=== PATIENT | female | born 1985 | race African-American/Black ===

== ENCOUNTER 2019-05-28 08:36 | Emergency (ER) | payer MEDICAID ==
[~2019-05-28] VITALS: Ht 165.1 cm; Wt 55.0 kg
[2019-05-28 13:52] VITALS: BP 106/56
== END 2019-05-28 13:52 | disposition home or self-care (01) ==
LOC: ER 08:36
DX: O99.611 Diseases of the digestive system complicating pregnancy, first trimester (principal); Z98.890 Other specified postprocedural states; Z3A.01 Less than 8 weeks gestation of pregnancy
CPT/HCPCS: 76700; 76801; 81025; 99284

== ENCOUNTER 2019-05-31 14:47 | Emergency (ER) | payer MEDICAID ==
[~2019-05-31] VITALS: Ht 165.1 cm; Wt 55.0 kg
[2019-05-31 17:24] VITALS: BP 111/50
== END 2019-05-31 21:13 | disposition left against medical advice (07) ==
LOC: ER 14:47
DX: Z53.21 Procedure and treatment not carried out due to patient leaving prior to being seen by health care provider (principal)

== ENCOUNTER 2019-06-02 15:43 | Emergency (ER) | payer MEDICAID ==
[~2019-06-02] VITALS: Ht 165.1 cm; Wt 59.0 kg
[2019-06-02] MEDS ORDERED: TYLENOL 3 (16:05)
[2019-06-02] MEDS ORDERED: ONDA4TAB11 PO (16:06)
[2019-06-02] MEDS ORDERED: SODIUM CHLORIDE 0.9% 1,000 ML IV ONE (16:33)
[2019-06-02] MEDS ORDERED: ONDANSETRON HCL 4MG/2ML INJ IV STA (16:33)
[2019-06-02 18:13] LABS: BASOPHILS % 0.5 % (0.0-2.0); EOSINOPHILS % 2.3 % (0.0-5.0); HEMATOCRIT. 34.8 % (36.0-48.0); HEMOGLOBIN. 11.5 g/dL (12.0-16.0); LYMPHOCYTES % 27.2 % (20.0-50.0); MEAN CORPUSCULAR HEMOGLOBIN 28.2 pg (28.0-32.0); MEAN CORPUSCULAR VOLUME 84.8 fL (81.0-99.0); MEAN PLATELET VOLUME 9.3 fl (7.4-10.4); MONOCYTES % 5.8 % (2.0-8.0); NEUTROPHILS % 64.2 % (40.0-76.0); PLATELET 225 x1000/uL (130-400)
[2019-06-02 18:20] LABS: CHLORIDE 105 mEq/L (98-107)
[2019-06-02 18:23] LABS: CLARITY URINE CLEAR (CLEAR); COLOR URINE YELLOW (YELLOW); KETONES URINE NEGATIVE (NEGATIVE); LEUKOCYTE ESTERASE URINE NEGATIVE (NEGATIVE); NITRITE URINE NEGATIVE (NEGATIVE); OCCULT BLOOD URINE NEGATIVE (NEGATIVE); PROTEIN URINE NEGATIVE (NEGATIVE); SPECIFIC GRAVITY URINE 1.009 (1.005-1.030); UROBILINOGEN URINE 0.2 E.U./dL (0.2-1.0)
[2019-06-02] MEDS ORDERED: MAGNESIUM/ALUMINUM HYDROXIDE/SIMETHICONE 30ML UDC PO STA (18:26)
[2019-06-02] MEDS ORDERED: DICYCLOMINE 10 MG/5 ML ORAL SYR PO STA (18:26)
[2019-06-02] MEDS ORDERED: VISCOUS LIDOCAINE 2% 15 ML UDC PO STA (18:26)
[2019-06-02] MEDS ORDERED: POTASSIUM CHLORIDE 20MEQ TABLET SR PO ONE (18:30)
[2019-06-02 20:00] VITALS: BP 110/68
== END 2019-06-02 20:40 | disposition home or self-care (01) ==
LOC: ER 15:43
DX: O26.892 Other specified pregnancy related conditions, second trimester (principal); O21.0 Mild hyperemesis gravidarum; R10.9 Unspecified abdominal pain; Z3A.01 Less than 8 weeks gestation of pregnancy
CPT/HCPCS: 36415; 76705; 80053; 81003; 81025; 83690; 85025; 96361; 96374; 99284; J2405; J7030

== ENCOUNTER 2019-07-30 01:01 | Emergency (ER) | payer MEDICAID ==
[~2019-07-30] VITALS: Ht 165.1 cm; Wt 58.0 kg
[~2019-07-30 01:01] MED LIST: ONDA4TAB11 PO; TYLENOL 3
[2019-07-30 01:52] LABS: BASOPHILS % 0.5 % (0.0-2.0); EOSINOPHILS % 1.6 % (0.0-5.0); HEMATOCRIT. 33.1 % (36.0-48.0); HEMOGLOBIN. 11.4 g/dL (12.0-16.0); LYMPHOCYTES % 18.5 % (20.0-50.0); MEAN CORPUSCULAR HEMOGLOBIN 29.2 pg (28.0-32.0); MEAN CORPUSCULAR VOLUME 84.8 fL (81.0-99.0); MONOCYTES % 5.4 % (2.0-8.0); PLATELET 234 x1000/uL (130-400); RED CELL DISTRIBUTION WIDTH 12.9 % (11.6-14.6)
[2019-07-30 01:57] LABS: CHLORIDE 107 mEq/L (98-107)
[2019-07-30 01:58] LABS: INR 0.9; PROTHROMBIN TIME 10.2 sec (9.6-11.0)
[2019-07-30 02:12] LABS: CLARITY URINE CLEAR (CLEAR); COLOR URINE YELLOW (YELLOW); KETONES URINE NEGATIVE (NEGATIVE); LEUKOCYTE ESTERASE URINE NEGATIVE (NEGATIVE); NITRITE URINE NEGATIVE (NEGATIVE); OCCULT BLOOD URINE NEGATIVE (NEGATIVE); PROTEIN URINE NEGATIVE (NEGATIVE); UROBILINOGEN URINE 0.2 E.U./dL (0.2-1.0)
[2019-07-30] MEDS ORDERED: ACETAMINOPHEN 500MG TABLET PO SCH (05:15)
[2019-07-30 05:19] VITALS: BP 104/66
== END 2019-07-30 05:21 | disposition home or self-care (01) ==
LOC: ER 01:01
DX: O26.892 Other specified pregnancy related conditions, second trimester (principal); R10.31 Right lower quadrant pain; Z3A.16 16 weeks gestation of pregnancy; Z98.890 Other specified postprocedural states
CPT/HCPCS: 36415; 76805; 76857; 80053; 81003; 85025; 99285

== ENCOUNTER 2020-01-05 07:59 | Emergency (ER) | payer MEDICAID ==
[~2020-01-05] VITALS: Ht 165.1 cm; Wt 80.0 kg
[2020-01-05 08:16] VITALS: BP 111/76
== END 2020-01-05 09:01 | disposition home or self-care (01) ==
LOC: ER 07:59
DX: O26.893 Other specified pregnancy related conditions, third trimester (principal); Z3A.39 39 weeks gestation of pregnancy; Z20.828 Contact with and (suspected) exposure to other viral communicable diseases
CPT/HCPCS: 87635; 99283; C9803

== ENCOUNTER 2020-01-08 06:13 | Inpatient (IN) | payer MEDICAID ==
[~2020-01-08] VITALS: Ht 165.1 cm; Wt 74.8 kg
[2020-01-08] MEDS: KETOROLAC 30MG/ML VIAL IV SCH ×3 (05:00→23:09)
[2020-01-08] MEDS ORDERED: DEXT 5%/LR + PITOCIN 20UNITS/L 1,000 ML IV SCH ×2 (06:28→10:33)
[2020-01-08] MEDS ORDERED: LACTATED RINGERS 1,000 ML IV SCH ×2 (06:28→07:30)
[2020-01-08] MEDS ORDERED: NALOXONE HCL 0.4 MG/ML 1ML VIAL IM PRN (06:30)
[2020-01-08] MEDS ORDERED: FERR325T6 PO (06:30)
[2020-01-08] MEDS ORDERED: CARBOPROST TROMETHAMINE 250 MCG/ML AMPUL IM PRN (06:30)
[2020-01-08] MEDS ORDERED: METHYLERGONOVINE MALEATE 0.2 MG/ML IM PRN (06:30)
[2020-01-08] MEDS ORDERED: PNV1TABL76 PO (06:30)
[2020-01-08 07:17] LABS: BASOPHILS % 0.2 % (0.0-2.0); EOSINOPHILS % 0.5 % (0.0-5.0); HEMATOCRIT. 36.1 % (36.0-48.0); LYMPHOCYTES % 19.1 % (20.0-50.0); MEAN CORPUSCULAR HEMOGLOBIN 29.5 pg (28.0-32.0); MEAN CORPUSCULAR VOLUME 88.4 fL (81.0-99.0); MEAN PLATELET VOLUME 8.5 fl (7.4-10.4); MONOCYTES % 6.4 % (2.0-8.0); NEUTROPHILS % 73.8 % (40.0-76.0); PLATELET 215 x1000/uL (130-400); RED BLOOD CELL COUNT 4.08 mill/uL (4.2-5.4); RED CELL DISTRIBUTION WIDTH 13.9 % (11.6-14.6)
[2020-01-08 07:27] LABS: PARTIAL THROMBOPLASTIN TIME 28.2 sec (23.4-31.0); PROTHROMBIN TIME 10.1 sec (9.6-11.0)
[2020-01-08] MEDS ORDERED: DIPHENHYDRAMINE 50MG/ML VIAL IV PRN ×2 (07:30)
[2020-01-08] MEDS ORDERED: ONDANSETRON HCL 4MG/2ML INJ IV PRN (07:30)
[2020-01-08] MEDS ORDERED: NALOXONE HCL 0.4 MG/ML 1ML VIAL IV PRN (07:30)
[2020-01-08] MEDS ORDERED: METOCLOPRAMIDE HCL 10MG/2ML VIAL IV PRN (07:30)
[2020-01-08] MEDS ORDERED: FENTANYL CITRATE/PF 50MCG/ML 2ML VIAL IV PRN (07:30)
[2020-01-08] MEDS ORDERED: MORPHINE SULFATE 10 MG/ML CPJ IV PRN (07:30)
[2020-01-08] MEDS ORDERED: KETOROLAC 30MG/ML VIAL IM SCH (07:30)
[2020-01-08 07:42] LABS: CLARITY URINE CLEAR (CLEAR); COLOR URINE YELLOW (YELLOW); KETONES URINE NEGATIVE (NEGATIVE); LEUKOCYTE ESTERASE URINE TRACE (NEGATIVE); NITRITE URINE NEGATIVE (NEGATIVE); OCCULT BLOOD URINE NEGATIVE (NEGATIVE); PH URINE 7.5 (4.5-8.0); PROTEIN URINE NEGATIVE (NEGATIVE); SPECIFIC GRAVITY URINE 1.013 (1.005-1.030)
[2020-01-08 07:57] LABS: HEPATITIS B SURFACE ANTIGEN NEGATIVE
[2020-01-08 08:21] LABS: *COCAINE SCREEN URINE NEGATIVE (NEGATIVE)
[2020-01-08 08:22] LABS: *AMPHETAMINES SCREEN URINE NEGATIVE (NEGATIVE); *BARBITURATES SCREEN URINE NEGATIVE (NEGATIVE); CANNABINOID URINE SCREEN NEGATIVE (NEGATIVE); METHADONE URINE SCREEN NEGATIVE (NEGATIVE); OPIATES URINE SCREEN NEGATIVE (NEGATIVE); PHENCYCLIDINE URINE SCREEN NEGATIVE (NEGATIVE)
[2020-01-08 08:24] LABS: *BENZODIAZEPINES SCREEN URINE NEGATIVE (NEGATIVE)
[2020-01-08] MEDS ORDERED: PROPOFOL 200MG/20ML VIAL IV ONE (10:00)
[2020-01-08] MEDS ORDERED: MIDAZOLAM HCL 2 MG/2 ML VIAL ONE (10:02)
[2020-01-08] MEDS ORDERED: KETOROLAC 30MG/ML VIAL IV PRN (10:45)
[2020-01-08] MEDS ORDERED: IBUPROFEN 400MG TABLET PO PRN (10:45)
[2020-01-08] MEDS ORDERED: BISACODYL 10MG SUPP PR PRN (10:45)
[2020-01-08] MEDS ORDERED: RHO(D) IMMUNE GLOBULIN 300 MCG/SYR IM PRN (10:45)
[2020-01-08 12:37] VITALS: BP 113/62
[2020-01-08 15:00] VITALS: BP 103/58
[2020-01-08 17:00] VITALS: BP 113/57
[2020-01-08 19:30] VITALS: BP 112/61
[2020-01-09 04:00] VITALS: BP 101/55
[2020-01-09 07:16] LABS: BASOPHILS % 0.2 % (0.0-2.0); EOSINOPHILS % 0.4 % (0.0-5.0); HEMATOCRIT. 25.8 % (36.0-48.0); HEMOGLOBIN. 8.8 g/dL (12.0-16.0); LYMPHOCYTES % 14.9 % (20.0-50.0); MEAN CORPUSCULAR HEMOGLOBIN 30.2 pg (28.0-32.0); MEAN CORPUSCULAR VOLUME 88.9 fL (81.0-99.0); MEAN PLATELET VOLUME 8.4 fl (7.4-10.4); MONOCYTES % 8.7 % (2.0-8.0); NEUTROPHILS % 75.8 % (40.0-76.0); PLATELET 172 x1000/uL (130-400); RED BLOOD CELL COUNT 2.91 mill/uL (4.2-5.4); RED CELL DISTRIBUTION WIDTH 13.9 % (11.6-14.6)
[2020-01-09 07:35] VITALS: BP 96/55
[2020-01-09] MEDS: IBUPROFEN 800MG TABLET PO PRN ×2 (09:14→17:27)
[2020-01-09 14:45] VITALS: BP 106/51
[2020-01-09] MEDS ORDERED: DIPHENHYDRAMINE 25MG CAPSULE PO PRN (15:30)
[2020-01-09 20:00] VITALS: BP 111/68
[2020-01-09] MEDS ORDERED: DOCUSATE SODIUM 100MG CAPSULE PO SCH (22:30)
[2020-01-09] MEDS ORDERED: SIMETHICONE 80MG TABLET CHEW PO SCH (22:30)
[2020-01-10] VITALS: BP 101/60
[2020-01-10 04:00] VITALS: BP 101/76
[2020-01-10] MEDS: IBUPROFEN 800MG TABLET PO PRN ×2 (04:19→09:20)
[2020-01-10] MEDS ORDERED: SIMETHICONE 80MG TABLET CHEW PO SCH (07:30)
[2020-01-10] MEDS ORDERED: DOCUSATE SODIUM 100MG CAPSULE PO SCH (09:00)
[2020-01-10 09:22] VITALS: BP 106/68
== END 2020-01-10 11:50 | disposition home or self-care (01) | DRG 540 ==
LOC: 8 EST LDRP 06:13 → 8EST 12:35
PROVIDERS: ADMIT Obstetrics & Gynecology; ATTEND Obstetrics & Gynecology
PROC: 10D00Z1 Extraction of Products of Conception, Low, Open Approach (ICD-10-PCS; principal; 2020-01-08)
DX: O34.211 Maternal care for low transverse scar from previous cesarean delivery (principal); O34.03 Maternal care for unspecified congenital malformation of uterus, third trimester; O99.02 Anemia complicating childbirth; D64.9 Anemia, unspecified; Z37.0 Single live birth; Z3A.39 39 weeks gestation of pregnancy; Q51.3 Bicornate uterus; Z82.49 Family history of ischemic heart disease and other diseases of the circulatory system; Z79.899 Other long term (current) drug therapy
CPT/HCPCS: 36415; 80305; 81003; 85025; 86592; 86703; 86762; 86850; 86900; 87340; 88307; J1200; J1885; J2250; J2590; J2704; J7120; Q0163

== ENCOUNTER 2020-03-20 03:37 | Emergency (ER) | payer MEDICAID ==
[~2020-03-20] VITALS: Ht 165.1 cm; Wt 69.1 kg
[~2020-03-20 03:37] MED LIST changes: +FERR325T6 PO; -ONDA4TAB11 PO; -TYLENOL 3
[2020-03-20] MEDS ORDERED: KETOROLAC 30MG/ML VIAL IV STA (06:46)
[2020-03-20] MEDS ORDERED: METOCLOPRAMIDE HCL 10MG/2ML VIAL IV ONE (07:00)
[2020-03-20 07:04] LABS: BASOPHILS % 0.5 % (0.0-2.0); EOSINOPHILS % 2.8 % (0.0-5.0); HEMATOCRIT. 33.8 % (36.0-48.0); HEMOGLOBIN. 11.3 g/dL (12.0-16.0); LYMPHOCYTES % 28.8 % (20.0-50.0); MEAN CORPUSCULAR HEMOGLOBIN 28.9 pg (28.0-32.0); MEAN CORPUSCULAR VOLUME 86.5 fL (81.0-99.0); MEAN PLATELET VOLUME 8.3 fl (7.4-10.4); MONOCYTES % 6.1 % (2.0-8.0); NEUTROPHILS % 61.8 % (40.0-76.0); PLATELET 275 x1000/uL (130-400); RED BLOOD CELL COUNT 3.91 mill/uL (4.2-5.4); RED CELL DISTRIBUTION WIDTH 13.2 % (11.6-14.6)
[2020-03-20 07:06] LABS: CLARITY URINE CLOUDY (CLEAR); COLOR URINE RED (YELLOW); KETONES URINE TRACE (NEGATIVE); LEUKOCYTE ESTERASE URINE 1+ (NEGATIVE); NITRITE URINE NEGATIVE (NEGATIVE); OCCULT BLOOD URINE 3+ (NEGATIVE); PROTEIN URINE 1+ (NEGATIVE); SPECIFIC GRAVITY URINE 1.013 (1.005-1.030); UROBILINOGEN URINE 0.2 E.U./dL (0.2-1.0)
[2020-03-20 07:07] LABS: CHLORIDE 104 mEq/L (98-107)
[2020-03-20 08:30] VITALS: BP 128/74
[2020-03-20 09:11] LABS: PROTHROMBIN TIME 10.7 sec (9.6-11.0)
== END 2020-03-20 09:18 | disposition home or self-care (01) ==
LOC: ER 03:37
DX: R10.9 Unspecified abdominal pain (principal); R51.9 Headache, unspecified; D64.9 Anemia, unspecified
CPT/HCPCS: 36415; 74176; 80053; 81003; 83690; 85025; 85610; 96374; 96375; 99285; J1885; J2765

== ENCOUNTER 2020-06-29 23:29 | Emergency (ER) | payer MEDICAID ==
[~2020-06-29] VITALS: Ht 165.1 cm; Wt 74.2 kg
[2020-06-30 00:18] LABS: CLARITY URINE CLEAR (CLEAR); COLOR URINE YELLOW (YELLOW); KETONES URINE NEGATIVE (NEGATIVE); LEUKOCYTE ESTERASE URINE TRACE (NEGATIVE); NITRITE URINE NEGATIVE (NEGATIVE); OCCULT BLOOD URINE NEGATIVE (NEGATIVE); PROTEIN URINE NEGATIVE (NEGATIVE); SPECIFIC GRAVITY URINE 1.005 (1.005-1.030); UROBILINOGEN URINE 0.2 E.U./dL (0.2-1.0)
[2020-06-30] MEDS ORDERED: SODIUM CHLORIDE 0.9% 1,000 ML IV ONE (00:30)
[2020-06-30] MEDS ORDERED: METOCLOPRAMIDE HCL 5MG TABLET PO ONE (00:30)
[2020-06-30] MEDS ORDERED: ACETAMINOPHEN 325MG TABLET PO STA (00:30)
[2020-06-30 00:48] LABS: BASOPHILS % 0.4 % (0.0-2.0); EOSINOPHILS % 2.2 % (0.0-5.0); HEMATOCRIT. 33.7 % (36.0-48.0); HEMOGLOBIN. 11.1 g/dL (12.0-16.0); LYMPHOCYTES % 22.6 % (20.0-50.0); MEAN CORPUSCULAR HEMOGLOBIN 27.1 pg (28.0-32.0); MEAN CORPUSCULAR VOLUME 82.5 fL (81.0-99.0); MEAN PLATELET VOLUME 7.9 fl (7.4-10.4); MONOCYTES % 6.7 % (2.0-8.0); NEUTROPHILS % 68.1 % (40.0-76.0); PLATELET 251 x1000/uL (130-400); RED BLOOD CELL COUNT 4.09 mill/uL (4.2-5.4); RED CELL DISTRIBUTION WIDTH 12.4 % (11.6-14.6)
[2020-06-30 00:55] LABS: CHLORIDE 105 mEq/L (98-107)
[2020-06-30 01:09] LABS: HCG SCREEN NEGATIVE
[2020-06-30 01:34] LABS: PROTHROMBIN TIME 10.7 sec (9.6-11.0)
[2020-06-30 02:00] VITALS: BP 124/76
[2020-06-30 02:02] LABS: *COCAINE SCREEN URINE NEGATIVE (NEGATIVE)
[2020-06-30 02:03] LABS: *AMPHETAMINES SCREEN URINE NEGATIVE (NEGATIVE); *BARBITURATES SCREEN URINE NEGATIVE (NEGATIVE); *BENZODIAZEPINES SCREEN URINE NEGATIVE (NEGATIVE); CANNABINOID URINE SCREEN NEGATIVE (NEGATIVE); METHADONE URINE SCREEN NEGATIVE (NEGATIVE); OPIATES URINE SCREEN NEGATIVE (NEGATIVE); PHENCYCLIDINE URINE SCREEN NEGATIVE (NEGATIVE)
[2020-06-30] MEDS ORDERED: CEPH250C2 MT (02:21)
[2020-06-30] MEDS ORDERED: CEPHALEXIN 250MG CAPSULE PO SCH (02:30)
== END 2020-06-30 04:23 | disposition home or self-care (01) ==
LOC: ER 23:29
DX: N39.0 Urinary tract infection, site not specified (principal); R51.9 Headache, unspecified; D64.9 Anemia, unspecified; R03.0 Elevated blood-pressure reading, without diagnosis of hypertension; Z98.890 Other specified postprocedural states
CPT/HCPCS: 36415; 80053; 80305; 81003; 81025; 82962; 83690; 84703; 85025; 85610; 93005; 96360; 99284; J7030; J8597

== ENCOUNTER 2020-10-14 06:47 | Emergency (ER) | payer MEDICAID ==
[~2020-10-14] VITALS: Ht 165.1 cm; Wt 70.0 kg
[~2020-10-14 06:47] MED LIST changes: +CEPH250C2 MT
[2020-10-14] MEDS ORDERED: ONDANSETRON HCL 4MG/2ML INJ IV STA (07:26)
[2020-10-14] MEDS ORDERED: MORPHINE SULFATE 4 MG/ML CPJ (NOT FOR IM USE) IV STA (07:26)
[2020-10-14] MEDS ORDERED: SODIUM CHLORIDE 0.9% 1,000 ML IV ONE (07:30)
[2020-10-14 09:08] LABS: CLARITY URINE CLEAR (CLEAR); COLOR URINE YELLOW (YELLOW); KETONES URINE NEGATIVE (NEGATIVE); LEUKOCYTE ESTERASE URINE NEGATIVE (NEGATIVE); NITRITE URINE NEGATIVE (NEGATIVE); OCCULT BLOOD URINE NEGATIVE (NEGATIVE); PH URINE 5.5 (4.5-8.0); PROTEIN URINE NEGATIVE (NEGATIVE); SPECIFIC GRAVITY URINE 1.007 (1.005-1.030); UROBILINOGEN URINE 0.2 E.U./dL (0.2-1.0)
[2020-10-14 09:16] LABS: BASOPHILS % 0.3 % (0.0-2.0); EOSINOPHILS % 1.4 % (0.0-5.0); HEMATOCRIT. 33.5 % (36.0-48.0); HEMOGLOBIN. 11.2 g/dL (12.0-16.0); LYMPHOCYTES % 22.4 % (20.0-50.0); MEAN CORPUSCULAR HEMOGLOBIN 27.3 pg (28.0-32.0); MEAN CORPUSCULAR VOLUME 81.7 fL (81.0-99.0); MEAN PLATELET VOLUME 8.3 fl (7.4-10.4); MONOCYTES % 4.1 % (2.0-8.0); NEUTROPHILS % 71.8 % (40.0-76.0); PLATELET 281 x1000/uL (130-400); RED BLOOD CELL COUNT 4.11 mill/uL (4.2-5.4); RED CELL DISTRIBUTION WIDTH 14.2 % (11.6-14.6)
[2020-10-14 09:27] LABS: CHLORIDE 110 mEq/L (98-107)
[2020-10-14] MEDS ORDERED: TRAM50TA3 MT (10:36)
[2020-10-14] MEDS ORDERED: OMEP20CA14 MT (10:40)
[2020-10-14 11:46] VITALS: BP 102/60
[2020-10-18] MEDS ORDERED: HYDROCODONE/ACETAMINOPHEN 10/325MG TABLET PO SCH (04:00)
== END 2020-10-14 11:56 | disposition home or self-care (01) ==
LOC: ER 06:47
DX: K80.50 Calculus of bile duct without cholangitis or cholecystitis without obstruction (principal)
CPT/HCPCS: 36415; 76705; 80053; 81003; 81025; 83690; 84484; 85025; 93005; 96361; 96374; 96375; 99285; C1893; J2270; J2405; J7030; Z7610

== ENCOUNTER 2020-10-18 03:13 | Emergency (ER) | payer MEDICAID ==
[~2020-10-18] VITALS: Ht 152.4 cm; Wt 61.0 kg
[~2020-10-18 03:13] MED LIST changes: +OMEP20CA14 MT; +TRAM50TA3 MT
[2020-10-18] MEDS ORDERED: HYDROCODONE/ACETAMINOPHEN 10/325MG TABLET PO ONE (04:15)
[2020-10-18 04:25] VITALS: BP 136/72
== END 2020-10-18 04:27 | disposition home or self-care (01) ==
LOC: ER 03:13
DX: K80.80 Other cholelithiasis without obstruction (principal); D64.9 Anemia, unspecified
CPT/HCPCS: 99283